=== PATIENT | male | born 1965 | race Hispanic/Latino ===

== ENCOUNTER → 2018-05-28 | Outpatient (CLI) | payer OTHER | END | disposition home or self-care (01) | LOC: OIH 12:42 | PROVIDERS: ATTEND Internal Medicine Geriatric Medicine | DX: Z13.6 Encounter for screening for cardiovascular disorders (principal) | CPT/HCPCS: 75571 ==

== ENCOUNTER 2018-06-11 12:45 | Emergency (ER) | payer OTHER ==
[~2018-06-11 12:45] MED LIST: AMIODARONE HCL 50 MG/ML 3 ML VIAL ONE; CALCIUM CHLORIDE 100 MG/ML 10 ML SYG IVP ONE; D5W IV ONE; DOPAMINE HCL IV ONE; EPINEPHRINE 0.1 MG/ML 10 ML SYG ONE; MAGNESIUM SULFATE 1 GM/2 ML VIAL ONE; SODIUM BICARB 8.4% 50ML SYRINGE ONE
[2018-06-11] MEDS ORDERED: SODIUM CHLORIDE 0.9% 1000ML 1,000 ML IV ONE (12:55)
[2018-06-11] MEDS ORDERED: PROPOFOL 1000 MG/100 ML 0 ML IV ONE (12:55)
[2018-06-11] MEDS ORDERED: INSULIN HUMULIN R 100 UNIT/ML 3ML ONE (12:58)
[2018-06-11] MEDS ORDERED: SODIUM BICARB 50MEQ 50ML VIAL ONE (13:03)
[2018-06-11] MEDS ORDERED: NOREPINEPHRINE BITARTRATE 1 MG/1 ML ML IV ONE (13:28)
== END 2018-06-11 16:49 | disposition expired ==
LOC: EDH 12:45
DX: I46.9 Cardiac arrest, cause unspecified (principal); R55 Syncope and collapse; E11.9 Type 2 diabetes mellitus without complications
CPT/HCPCS: 31500; 82948; 92950; 93005 ×4; 96361; 96374; 96375; 99291; J0171; J0282; J1265; J1815; J3475; J3490 ×3; J7030; J2704